=== PATIENT | female | born 1980 | race Caucasian/White ===

== ENCOUNTER 2020-04-13 11:54 | Emergency (ER) | payer MEDICAID ==
[~2020-04-13] VITALS: Ht 160 cm; Wt 60.0 kg
[2020-04-13 12:15] VITALS: BP 109/74
== END 2020-04-13 13:07 | disposition home or self-care (01) ==
LOC: ER 11:54
DX: Z32.02 Encounter for pregnancy test, result negative (principal)
CPT/HCPCS: 81025; 99282